=== PATIENT | female | born 1945 | race Two or more races ===

== ENCOUNTER 2019-04-12 10:52 | Emergency (ER) | payer OTHER ==
[~2019-04-12] VITALS: Ht 157.5 cm; Wt 49.0 kg
[2019-04-12 11:55] LABS: Albumin 3.7 g/dL (3.4-5.0); Calcium 8.9 mg/dL (8.5-10.1); Potassium 3.7 mmol/L (3.5-5.1)
[2019-04-12 11:58] LABS: BUN/Creatinine Ratio 16.1; Bilirubin, Total 0.4 mg/dL (0.2-1.0); Total Protein 7.7 g/dL (6.4-8.2)
[2019-04-12 12:18] LABS: Urine Bacteria NONE SEEN /hpf (None Seen); Urine Blood TRACE /uL (Negative); Urine Mucus FEW (None Seen); Urine Specific Gravity 1.009 (1.001-1.035); Urine WBC 2 /hpf (0 - 5)
[2019-04-12 12:48] LABS: Basophils # (auto) 0 uL; Basophils % (auto) 0.6 % (0.0-2.0); Eosinophils # (auto) 0 uL; Eosinophils % (auto) 1.1 % (0.0-7.0); Hemoglobin 13.3 g/dL (12.2-16.2); Lymphocytes # (auto) 1.6 uL; Lymphocytes % (auto) 41.8 % (10.0-50.0); Mean Corpuscular Hemoglobin 29.8 pg (28.0-32.0); Mean Corpuscular Hgb Conc. 33.1 g/dL (32.0-36.0); Mean Corpuscular Volume 89.8 fL (80.0-100.0); Monocytes # (auto) 0.3 uL; Monocytes % (auto) 7.2 % (0.0-12.0); Neutrophils # (auto) 1.9 uL; Neutrophils % (auto) 49.3 % (37.0-80.0); Nucleated Red Blood Cells % 0.1 %; Platelet Count (auto) 238 10^3/uL (140-450); Red Blood Cells 4.46 10^6/uL (4.0-5.20); Red Cell Distribution Width 14.5 % (11.8-14.3); White Blood Cell 3.8 10^3/uL (4.4-10.8)
[2019-04-12 15:10] VITALS: BP 128/66
== END 2019-04-12 15:34 | disposition home or self-care (01) ==
LOC: ER 10:58
DX: K44.9 Diaphragmatic hernia without obstruction or gangrene (principal); Z88.6 Allergy status to analgesic agent
CPT/HCPCS: 36415; 74176; 80053; 81001; 83690; 85025

== ENCOUNTER 2019-10-13 22:11 | Emergency (ER) | payer OTHER ==
[~2019-10-13] VITALS: Ht 152.4 cm; Wt 58.2 kg
[2019-10-14 01:19] VITALS: BP 118/70
[2019-10-14] MEDS ORDERED: DIPHENOXYLATE W/ATROPINE 2.5 MG TAB PO ONE (01:30)
== END 2019-10-14 01:38 | disposition home or self-care (01) ==
LOC: ER 22:12
DX: K52.9 Noninfective gastroenteritis and colitis, unspecified (principal); K21.9 Gastro-esophageal reflux disease without esophagitis; Z88.5 Allergy status to narcotic agent

== ENCOUNTER 2022-06-04 21:37 | Emergency (ER) | payer OTHER ==
[~2022-06-04] VITALS: Ht 154.9 cm; Wt 68.0 kg
[2022-06-04 21:39] VITALS: BP 141/78
== END 2022-06-05 00:56 | disposition left against medical advice (07) ==
LOC: ER 21:37 → EDBD 21:37 → ER 06-05 00:56
DX: R10.30 Lower abdominal pain, unspecified (principal); Z53.21 Procedure and treatment not carried out due to patient leaving prior to being seen by health care provider